=== PATIENT | female | born 1995 | race Caucasian/White ===

== ENCOUNTER 2016-12-09 15:34 | Outpatient (CLI) | payer MEDICAID ==
[~2016-12-09] VITALS: Ht 162.6 cm; Wt 81.9 kg
[2016-12-09] MEDS ORDERED: PRENAT PO (15:50)
[2016-12-09] MEDS ORDERED: CALC600T11 PO (15:51)
[2016-12-09] MEDS ORDERED: FERR236T PO (15:51)
[2016-12-09 16:07] VITALS: BP 114/72; PULSE 114; RESP 18
[2016-12-09] MEDS ORDERED: ACETAMINOPHEN 325 MG TAB PO PRN (16:40)
[2016-12-09] MEDS ORDERED: LACTATED RINGER'S 1,000 ML IV* SCH (17:00)
--- NOTE | 2016-12-09 17:02 | PN ---
Date/Time of Note Date/Time of Note DATE: 12/09/16 TIME: 16:58 OB Subjective Subjective Subjective at 27+ wks ga who presents with abdominal/pelvic pain Patient reports movement, no contractions, no leaking fluid, no vaginal bleeding OB Objective HEENT: WNL Cervical Dilatation: None OB Assessment/Plan Other Assessment: G1 para 0 at 27+ weeks of gestation with abdominal/pelvic pain Other plan: IV fluid, CBC, CMP UA OB ultrasound for EFW, cx length and SARAN FFISAAK FERNANDO MD December 09, 2016 17:02
--- NOTE | 2016-12-09 17:15 | RADRPT ---
PROCEDURE: US OB. CLINICAL INDICATION: labor TECHNIQUE: Multiple sonographic images of the pelvis were obtained. Transabdominal imaging was pe rformed. Transvaginal images were obtained to assess cervical length. The images were reviewed o n a PACS workstation. COMPARISON: No prior studies are available for comparison. FINDINGS: Single intrauterine gestation. Cephalic presentation. heart rate is 152 bpm. Measurements were made in order to determine age. The results are as follows: BPD = 6.85 cm HC = 25.02 cm AC = 25.13 cm FL = 5.13 cm Gestational age is 27 weeks 6 days and HEMA is 03/04/2017 by ultrasound criteria. Gestational age is 27 weeks 2 days and HEMA is 03/08/2017 by LMP. EFW = 1217 g +/- 183 g (80 %). The placenta is anterior. There is no evidence for an abruption or placenta previa. SARAN measures 20.1 cm, within normal limits. The cervix is closed and measures 2.8 cm in length. IMPRESSION: 1. Single live intrauterine gestation of approximately 27 weeks 6 days by ultrasound criteria, as a víctor. RPTAT: QQ .Delta Landrum MD, Date Time Electronically viewed and signed by .Delta Landrum MD, MD on 12/09/2016 17:14 .R/
[2016-12-09 17:36] LABS: ADD SCAN DIFF NO
[2016-12-09 17:38] LABS: BASOPHILS % 0.2 % (0.0-2.0); EOSINOPHILS % 0.2 % (0.0-7.0); HEMATOCRIT 34.4 % (37.0-47.0); HEMOGLOBIN 11.6 g/dl (12.0-16.0); LYMPHOCYTES # 0.9 10^3/ul (0.8-2.9); LYMPHOCYTES % 7.4 % (18.0-55.0); MEAN CORPUSCULAR HEMOGLOBIN 29.5 pg (29.0-33.0); MEAN CORPUSCULAR HGB CONC 33.7 g/dl (32.0-37.0); MEAN CORPUSCULAR VOLUME 87.5 fl (72.0-104.0); MEAN PLATELET VOLUME 9.8 fl (7.4-10.4); MONOCYTE # 0.6 10^3/ul (0.3-0.9); MONOCYTES % 4.6 % (0.0-13.0); NEUTROPHIL # 10.9 10^3/ul (1.6-7.5); NEUTROPHILS % 85.9 % (30.0-74.0); PLATELET COUNT 349 10^3/UL (140-415); RED BLOOD COUNT 3.93 10^6/ul (4.20-5.40); RED CELL DISTRIBUTION WIDTH 13.3 % (11.5-14.5); WHITE BLOOD COUNT 12.7 10^3/ul (4.8-10.8)
[2016-12-09 17:47] LABS: ADD UMIC YES; URINE BILIRUBIN (Dip) NEGATIVE (NEGATIVE); URINE BLOOD (Dip) 1+ (NEGATIVE); URINE COLOR LT. YELLOW (YELLOW); URINE GLUCOSE (Dip) NEGATIVE (NEGATIVE); URINE KETONES (Dip) TRACE (NEGATIVE); URINE LEUKOCYTE ESTERASE (Dip) 1+ (NEGATIVE); URINE NITRITE (Dip) NEGATIVE (NEGATIVE); URINE TOTAL PROTEIN (Dip) TRACE (NEGATIVE); URINE UROBILINOGEN (Dip) 0.2 E.U./dL (0.1-1.0)
[2016-12-09 18:07] LABS: ALBUMIN 3.9 g/dl (3.3-4.9); ALBUMIN/GLOBULIN RATIO 1.08; BILIRUBIN,INDIRECT 0.4 mg/dl (0-1.1); BILIRUBIN,TOTAL 0.4 mg/dl (0.2-1.3); CALCIUM 9.4 mg/dl (8.4-10.2); CREATININE 0.46 mg/dl (0.44-1.00); POTASSIUM 3.7 mmol/L (3.5-5.1); TOTAL PROTEIN 7.5 g/dl (6.1-8.1)
[2016-12-09 18:08] LABS: BACTERIA,URINE FEW; SQUAMOUS EPITHELIAL CELL,UR FEW
--- NOTE | 2016-12-09 19:15 | TRIAGE ---
OB Triage Datetime Report Generated by CPN: 12/09/2016 19:15 Datetime: 12/09/2016 18:49 Headache: Occipital; Temporal Labor Evaluation Frequency: 0 Monitor Mode: External Pattern: Normal: <= 5 Contractions in 10 Minutes Resting Tone [place]: Relaxed Heart Rate FHR Baseline Rate: 145 FHR Baseline Changes: No Baseline Change Variability: Moderate 6-25 bpm Accelerations: 15X15 Decelerations: Variable Category: Category I Pain Assessment Pain Scale: 3 Pain Presence: Constant Pain Type: Cramping; Pressure Pain Location: Abdomen Datetime: 12/09/2016 17:21 Assessment Type: Ongoing Assessment Datetime: 12/09/2016 17:00 Labor Evaluation Frequency: 0 Monitor Mode: External Pattern: Normal: <= 5 Contractions in 10 Minutes Resting Tone [place]: Relaxed Heart Rate FHR Baseline Rate: 150 FHR Baseline Changes: No Baseline Change Variability: Moderate 6-25 bpm Accelerations: 15X15 Decelerations: Variable Datetime: 12/09/2016 16:03 Stage of : OB Triage Assessment Type: Triage Maternal Assessment Level of Consciousness: Fully Conscious Headache: Occipital; Temporal Blurred Vision: No Respiratory Effort: Unlabored; Regular Rhythm; Equal Expansion Breath Sounds, Left: Clear and Equal Breath Sounds, Right: Clear and Equal Nausea/Vomiting: Denies RUQ Epigastric Pain: Denies Lower Extremities Edema: None Degree: None Upper Extremities Edema: None Degree: None Facial Edema: None Temperature Route: Oral Fall Risk Assessment History of Falling: (0) No Secondary Diagnosis: (0) No Ambulatory Aid: (0) Bedrest/Nurse Assist IV Therapy: (0) No Gait: (0) Normal/Bedrest/Immobile Mental Status: (0) Oriented to Own Ability Fall Score: 0 Fall Risk Score Definition: No Risk: No action required Pain Assessment Pain Scale: 10 Pain Presence: Constant Pain Type: Cramping Pain Location: Abdomen; Right Groin; Left Groin; Head Datetime: 12/09/2016 15:45 Time of Arrival: 12/09/2016 15:30 EGA: 27.2 Arrived By: Wheelchair Arrived From: Emergency Dept Chief Complaint: ABDOMINAL PAIN FROM 1000; HEADACHE FROM 1000 Movement: Present Contractions: Denies/Absent Rupture of Membranes: Denies Vaginal Bleeding: None Vaginal Discharge: Denies Recent Sexual Intercouse: Denies Abdominal Trauma: Not Applicable Patient Complaints: Cramping Time Provider Notified: 12/09/2016 16:37 Provider Notified: DR. BRAY Initial Plan: EFM X2
== END 2016-12-09 19:10 | disposition home or self-care (01) ==
LOC: OBT 15:34 → L-D 15:35 → OBT 19:10
PROVIDERS: ATTEND Obstetrics & Gynecology
DX: O26.892 Other specified pregnancy related conditions, second trimester (principal); R10.9 Unspecified abdominal pain; R10.2 Pelvic and perineal pain; Z3A.27 27 weeks gestation of pregnancy
CPT/HCPCS: 36415; 76815; 76817; 80053; 81001; 82731; 85025; 87086; 96360; Z7500; Z7610; 81003; G0463

== ENCOUNTER 2017-02-23 03:47 | Inpatient (IN) | payer MEDICAID ==
[~2017-02-23] VITALS: Ht 165.1 cm; Wt 91.8 kg
[~2017-02-23 03:47] MED LIST: CALC600T11 PO; FERR236T PO; PRENAT PO
[2017-02-23 04:31] VITALS: BP 112/78; PULSE 85; RESP 18
[2017-02-23] MEDS ORDERED: LACTATED RINGER'S 1,000 ML IV SCH (04:45)
[2017-02-23] MEDS ORDERED: AMPICILLIN 2 GM/NS (PMX) 100 ML IV ONE (05:00)
[2017-02-23] MEDS ORDERED: CARBOPROST 250 MCG INJ IM PRN ×2 (05:00→13:30)
[2017-02-23] MEDS ORDERED: OXYTOCIN 30 UNITS/LR 500 ML IV SCH ×2 (05:00)
[2017-02-23] MEDS ORDERED: IBUPROFEN 600 MG TAB PO PRN (05:00)
[2017-02-23] MEDS ORDERED: OXYTOCIN 30 UNITS/LR 500 ML IV PRN ×2 (05:00→13:30)
[2017-02-23] MEDS ORDERED: METHYLERGONOVINE 0.2 MG INJ IM PRN ×2 (05:00→13:30)
[2017-02-23] MEDS ORDERED: MISOPROSTOL 200 MCG TAB PR PRN ×2 (05:00→13:30)
[2017-02-23] MEDS ORDERED: LIDOCAINE 1% (MPF) 30 ML INJ INJ PRN (05:00)
[2017-02-23] MEDS ORDERED: BUTORPHANOL 2 MG INJ IV PRN (05:00)
--- NOTE | 2017-02-23 05:50 | RADRPT ---
PROCEDURE: Obstetrical ultrasound, limited. CLINICAL INDICATION: Pelvic pain. TECHNIQUE: Multiple sonographic images of the pelvis were obtained using transabdominal technique . Images were obtained with roach scale and color Doppler. The images were reviewed on a PACS works tation. COMPARISON: 12/09/2016. FINDINGS: There is a single living intrauterine gestation with the fetus in a vertex presentation. hear t tones of 131 beats per minute are identified. The placenta is anterior in location, grade 2. The re is no evidence of placenta previa or abruption. Measurements were made in order to determine age. The results are as follows: BPD =9.42 cm HC =32.71 cm AC =33.64 cm FL =7.17 cm. Estimated gestational age of approximately 37 weeks and 3 days. The estimated date of delivery is 03/13/2017. The EFW = 3201 +/- 480 grams. Estimated weight percentage equals 43.8%. IMPRESSION: Single viable intrauterine gestation of approximately 37 weeks and 3 days, with an ultrasound HEMA of 03/13/2017. .Colt Arzate MD, MD Date Time Electronically viewed and signed by .Colt Arzate MD, MD on 02/23/2017 05:49 .T/
[2017-02-23] MEDS ORDERED: LACTATED RINGER'S 1,000 ML IV PRN (06:00)
--- NOTE | 2017-02-23 06:18 | TRIAGE ---
OB Triage Datetime Report Generated by CPN: 02/23/2017 06:17 Datetime: 02/23/2017 05:32 Stage of : Labor Assessment Type: Admission Assessment Vaginal Bleeding: None Maternal Assessment Level of Consciousness: Fully Conscious DTR's/Clonus: DTRs 2+; No Clonus Headache: Denies Blurred Vision: No Respiratory Effort: Unlabored; Regular Rhythm; Equal Expansion Breath Sounds, Left: Clear and Equal Breath Sounds, Right: Clear and Equal Nausea/Vomiting: Denies RUQ Epigastric Pain: Denies Lower Extremities Edema: None Degree: None Upper Extremities Edema: None Degree: None Facial Edema: None Fall Risk Assessment History of Falling: (0) No Secondary Diagnosis: (0) No Ambulatory Aid: (0) Bedrest/Nurse Assist IV Therapy: (20) Yes Gait: (0) Normal/Bedrest/Immobile Mental Status: (0) Oriented to Own Ability Fall Score: 20 Fall Risk Score Definition: No Risk: No action required Labor Evaluation Frequency: 6 Duration (sec)2399: 80 Quality: Moderate Pattern: Normal: <= 5 Contractions in 10 Minutes Resting Tone [place]: Relaxed Heart Rate FHR Baseline Rate: 140 Variability: Moderate 6-25 bpm Accelerations: 10X10 Decelerations: None Pain Assessment Pain Scale: 6 Pain Presence: Intermittent Pain Type: Contraction Pain Location: Abdomen; Back Pain Goal: 3 Membrane Status: Intact Datetime: 02/23/2017 04:40 Stage of : OB Triage Datetime: 02/23/2017 04:36 Stage of : OB Triage Labor Evaluation Frequency: 2-6 Monitor Mode: External Duration (sec)2399: 60 Quality: Moderate Pattern: Normal: <= 5 Contractions in 10 Minutes Resting Tone [place]: Relaxed Heart Rate FHR Baseline Rate: 140 Monitor Mode: External US FHR Baseline Changes: No Baseline Change Variability: Moderate 6-25 bpm Accelerations: 15X15 Decelerations: None Category: Category I Vaginal Exam Dilatation (cms): 4.0 Effacement (%): 70 Station: -2 Exam By: Vern Jimenez Membrane Status: Intact Vaginal Bleeding: Moderate Cervix, Consistency: Soft Cervix, Position: Midposition Presentation 'A': Cephalic Datetime: 02/23/2017 04:26 Time of Arrival: 02/23/2017 03:40 EGA: 38.1 Arrived By: Wheelchair Arrived From: Home Chief Complaint: c/o mog bleeding beg 0300 Movement: Present Contractions: Irregular Time Contractions Began: 02/23/2017 03:30 Rupture of Membranes: Denies Vaginal Bleeding: Moderate; Bright Red Vaginal Discharge: Present Recent Sexual Intercouse: Denies Abdominal Trauma: Not Applicable Patient Complaints: Contractions Time Provider Notified: 02/23/2017 04:40 Provider Notified: Dr Luna Initial Plan: EFM, SVE Datetime: 02/23/2017 03:59 Stage of : OB Triage Maternal Assessment Level of Consciousness: Fully Conscious Headache: Denies Blurred Vision: No Respiratory Effort: Unlabored Nausea/Vomiting: Denies RUQ Epigastric Pain: Denies Facial Edema: None Labor Evaluation Frequency: pl,aced Monitor Mode: External Resting Tone [place]: Relaxed Monitor Mode: External US Comments: FHT 150 Pain Assessment Pain Scale: 2 Pain Presence: Intermittent Pain Type: Cramping Pain Location: Abdomen Datetime: 12/09/2016 16:03 Fall Score: 0 Fall Risk Score Definition: No Risk: No action required Datetime: 12/09/2016 15:45 EGA: 27.2
[2017-02-23 06:24] LABS: BASOPHILS % 0.2 % (0.0-2.0); EOSINOPHILS # 0.1 10^3/ul (0.0-0.5); EOSINOPHILS % 1.2 % (0.0-7.0); HEMATOCRIT 37.4 % (37.0-47.0); HEMOGLOBIN 12.7 g/dl (12.0-16.0); LYMPHOCYTES # 2.7 10^3/ul (0.8-2.9); LYMPHOCYTES % 24.4 % (18.0-55.0); MEAN CORPUSCULAR HEMOGLOBIN 29.1 pg (29.0-33.0); MEAN CORPUSCULAR VOLUME 85.6 fl (72.0-104.0); MEAN PLATELET VOLUME 10.2 fl (7.4-10.4); MONOCYTES % 8.7 % (0.0-13.0); NEUTROPHIL # 7.2 10^3/ul (1.6-7.5); NEUTROPHILS % 64.4 % (30.0-74.0); PLATELET COUNT 331 10^3/UL (140-415); RED BLOOD COUNT 4.37 10^6/ul (4.20-5.40); RED CELL DISTRIBUTION WIDTH 13.7 % (11.5-14.5); WHITE BLOOD COUNT 11.1 10^3/ul (4.8-10.8)
[2017-02-23] MEDS ORDERED: MINERAL OIL LIGHT 10 ML VIAL TOP ONE (06:30)
[2017-02-23 06:42] LABS: INR 0.84; PROTIME 11.5 Sec (12.2-14.2); PT RATIO 0.9
[2017-02-23 06:43] LABS: PARTIAL THROMBOPLASTIN TIME 27.1 Sec (25.0-35.0)
[2017-02-23] MEDS ORDERED: AMPICILLIN 1 GM/NS (PMX) 50 ML IV SCH (09:00)
--- NOTE | 2017-02-23 11:36 | HP ---
Date/Time of Note Date/Time of Note DATE: 02/23/17 TIME: 11:35 OB - History Hx of Present Free Text/Dictation 38+wks GA Labor : 1 Para: 0 Care: Good Care Ultrasounds: Normal mid trimester US Obstetrical Complications: None Medical Complications: None Past Family/Social History * Past Medical, Surgical, Family and Obstetric Histories reviewed from chart. OB Admission Exam Vital Signs Vital Signs Vital Signs Date Time Temp Pulse Resp B/P Pulse Ox O2 Delivery O2 Flow Rate FiO2 02/23/17 04:31 98.4 85 18 112/78 Room Air Physical Exam Abdomen: WNL Extremities: Normal Cervical Dilatation: 4cm Effacement: 75% Station: -1 Membranes: Intact Heart Rate: 140's Accelerations: Accelerations Present Decelerations: No Decelerations Varibility: Moderate Contractions on Admission: < 5 Minutes Apart Last 72 hours Lab Results CBC & BMP 02/23/17 05:50 OB Assessment/Plan Reason for admission: active labor QUYEN GUILLEN M.D. Feb 23, 2017 11:36
--- NOTE | 2017-02-23 11:41 | LDN ---
Date/Time of Note Date/Time of Note DATE: 02/23/17 TIME: 11:39 Delivery Summary 38 wks Placenta Delivered: Spontaneously Meconium: none Episiotomy: No Perineal laceration: 2 Anesthesia type: Local Estimated blood loss: 200 Sponge & Needle done & correct: Yes All needle counts correct: Yes Any foreign bodies felt in the: No Problems: Infant Delivery Information Sex Sex: female Apgars 1 Minute: 9 5 Minute: 9 Suctioning Nose & mouth suctioned at sheela: Yes Delee suction performed: Yes Umbilical Cord Umbilical cord with: 3 Vessels Cord presentations: no nuchal cord Cord Blood was obtained: Yes Mother & Baby Disposition Disposition Mom & Baby to Maternity; Good: Yes Baby to NICU: No QUYEN GUILLEN M.D. Feb 23, 2017 11:41
[2017-02-23 12:30] VITALS: BP 106/57; PULSE 88; RESP 19
[2017-02-23 13:00] VITALS: BP 106/56; PULSE 84; RESP 18
[2017-02-23] MEDS: LACTATED RINGER'S 1,000 ML IV* SCH (13:10)
[2017-02-23] MEDS ORDERED: ZOLPIDEM 5 MG TAB PO PRN (13:30)
[2017-02-23] MEDS ORDERED: LANOLIN 7 GM TUBE TOP PRN (13:30)
[2017-02-23] MEDS ORDERED: OXYCODONE/ASPIRIN (4.88/325) TAB PO PRN (13:30)
[2017-02-23] MEDS ORDERED: SENNA/DOCUSATE NA (8.6MG/50MG) TAB PO PRN (13:30)
[2017-02-23] MEDS ORDERED: WITCH HAZEL/GLYCERIN PAD PR PRN (13:30)
[2017-02-23 16:00] VITALS: BP 109/65; PULSE 92; RESP 17
[2017-02-23 16:30] VITALS: BP 114/54; PULSE 75; RESP 19
[2017-02-23] MEDS: IBUPROFEN 600 MG TAB PO SCH ×2 (18:22→23:52)
[2017-02-23 19:46] VITALS: BP 113/81; PULSE 107; RESP 18
[2017-02-23] MEDS: SENNA/DOCUSATE NA (8.6MG/50MG) TAB PO SCH (21:25)
[2017-02-24 00:30] VITALS: BP 118/70; PULSE 76; RESP 18
[2017-02-24 04:16] VITALS: BP 109/60; PULSE 84; RESP 18
[2017-02-24] MEDS: IBUPROFEN 600 MG TAB PO SCH ×3 (06:12→18:52)
[2017-02-24] MEDS: LACTATED RINGER'S 1,000 ML IV* SCH ×3 (06:28→13:10)
[2017-02-24 07:16] LABS: BASOPHILS % 0.1 % (0.0-2.0); EOSINOPHILS # 0.1 10^3/ul (0.0-0.5); EOSINOPHILS % 0.9 % (0.0-7.0); HEMATOCRIT 29.9 % (37.0-47.0); LYMPHOCYTES # 3.7 10^3/ul (0.8-2.9); LYMPHOCYTES % 24.2 % (18.0-55.0); MEAN CORPUSCULAR HGB CONC 33.4 g/dl (32.0-37.0); MEAN CORPUSCULAR VOLUME 86.7 fl (72.0-104.0); MEAN PLATELET VOLUME 10.1 fl (7.4-10.4); MONOCYTE # 1.3 10^3/ul (0.3-0.9); MONOCYTES % 8.9 % (0.0-13.0); NEUTROPHIL # 9.8 10^3/ul (1.6-7.5); NEUTROPHILS % 64.9 % (30.0-74.0); PLATELET COUNT 244 10^3/UL (140-415); RED BLOOD COUNT 3.45 10^6/ul (4.20-5.40); RED CELL DISTRIBUTION WIDTH 14.1 % (11.5-14.5); WHITE BLOOD COUNT 15.1 10^3/ul (4.8-10.8)
[2017-02-24 08:00] VITALS: BP 100/67; PULSE 81; RESP 18
[2017-02-24] MEDS: SENNA/DOCUSATE NA (8.6MG/50MG) TAB PO SCH ×2 (08:45→20:34)
[2017-02-24 16:00] VITALS: BP 113/74; PULSE 86; RESP 18
[2017-02-24 19:45] VITALS: BP 108/62; PULSE 92; RESP 18
[2017-02-25 04:53] VITALS: BP 108/60; PULSE 80; RESP 20
[2017-02-25] MEDS: IBUPROFEN 600 MG TAB PO SCH ×3 (05:54→12:04)
[2017-02-25 08:00] VITALS: BP 105/69; PULSE 90; RESP 18
[2017-02-25] MEDS: SENNA/DOCUSATE NA (8.6MG/50MG) TAB PO SCH (08:33)
[2017-02-25] MEDS ORDERED: DIPHTH/TET/ACEL PERTUSS (ADULT) 0.5 ML VIAL IM* ONE (09:00)
--- NOTE | 2017-02-25 14:17 | PD.PPDC ---
MODELING DIRECTOR Discharge Instruction Condition Patient Condition: Good Diet Diet: Resume Regular Diet Activity/Restrictions Activity: Normal Activity May Shower Restrictions: No Sexual Activity Nothing in the Vagina No [place] No Tampons, douche Follow-up Follow-up with Physician: 6, Week/Weeks Return to clinic for STRUCTURAL BIOLOGIST Instructions: Fever greater than 101 Chills Worsening abdominal pain Excessive Vaginal Bleeding OB Instructions: Breast Tenderness Depression VALERIE BEEBE MD Feb 25, 2017 14:17
--- NOTE | 2017-02-25 14:20 | DS ---
Date/Time of Note Date/Time of Note DATE: 02/25/17 TIME: 14:19 Obstetrical Discharge Record Final Diagnosis Final Diagnosis: Term delivered Vaginal Delivery Obstetrical Delivery: Spontaneous, Laceration, Repaired Complications Augmentation: No Induction: No Condition on Discharge Physical Assessment Last Vitals: T=98.1 BP 105/69 Voiding: Yes Bowel Movement: Yes Breast: Soft, non-tender Fundus: Firm Calf Tenderness: No Patient Condition: Good VALERIE BEEBE MD Feb 25, 2017 14:20
== END 2017-02-25 15:20 | disposition home or self-care (01) | DRG 775 ==
LOC: OBT 03:47 → L-D 03:48 → OBT 05:00 → L-D 05:01 → PP1 12:30
PROVIDERS: ADMIT Obstetrics & Gynecology; ATTEND Obstetrics & Gynecology
PROC: 10E0XZZ Delivery of Products of Conception, External Approach (ICD-10-PCS; principal; 2017-02-23)
PROC: 0KQM0ZZ Repair Perineum Muscle, Open Approach (ICD-10-PCS; 2017-02-23)
PROC: 3E033VJ Introduction of Other Hormone into Peripheral Vein, Percutaneous Approach (ICD-10-PCS; 2017-02-23)
PROC: 3E00X4Z Introduction of Serum, Toxoid and Vaccine into Skin and Mucous Membranes, External Approach (ICD-10-PCS; 2017-02-25)
DX: O70.1 Second degree perineal laceration during delivery (principal); Z37.0 Single live birth; Z23 Encounter for immunization; Z3A.38 38 weeks gestation of pregnancy
CPT/HCPCS: 76815; 85025; 85610; 85730; 86592; 86850; 86900; 86901; 87340; 90715; A4310; G0463; J0290; J0595; J2590; J7120